=== PATIENT | male | born 1950 | race African-American/Black ===

== ENCOUNTER 2020-07-09 20:44 | Inpatient (IN) | payer MEDICARE, OTHER ==
[2020-07-09 22:10] LABS: #Eosinphils 0.1 thou/uL (0.0-0.7); #Lymphocytes 2.1 thou/uL (1.20-3.40); #Monocytes 0.9 thou/uL (0.11-0.59); #Neutrophils 7.4 thou/uL (1.40-6.50); %Basophils 0.3 % (0.0-1.0); %Eosinophils 0.7 % (0.0-10.0); %Lymphocytes 20.4 % (21.0-51.0); %Monocytes 8.5 % (0.0-10.0); %Neutrophils 70.1 % (42.0-75.0); Hemoglobin 13.8 g/dL (14.0-18.0); Mean Corpuscular HGB CONC 32.9 g/dL (32.0-36.0); Mean Platelet Volume 8.5 fL (7.4-10.4); Platelet Count 170 thou/uL (130-400); RBC Distribution Width 12.5 % (11.5-14.5); Red Blood Cell (RBC) Count 4.44 mill/uL (4.70-6.10); White Blood Cell (WBC) Count 10.5 thou/uL (4.8-10.8)
[2020-07-09 22:14] LABS: INR-International Normal Ratio 0.9; Prothrombin Time 12.5 sec (12.0-14.7)
[2020-07-09 22:35] LABS: ALT (SGPT) 9 U/L (8-55); AST (SGOT) 17 U/L (5-34); Albumin 3.8 g/dL (3.4-4.8); Alkaline Phosphatase 63 U/L (40-110); Anion Gap 14 mmol/L (10-20); BUN (Urea Nitrogen) 28 mg/dL (8.4-25.7); Bilirubin, Total Less than 0.2 mg/dL (0.2-1.2); Calc. Creatinine Clearance 0 mL/min (70-130); Carbon Dioxide 24 mmol/L (23-31); Chloride 101 mmol/L (98-107); Estimated GFR-MDRD 50; Globulin 3.7 g/dL (2.4-3.5); Glucose 185 mg/dL (80-115); Potassium 4.3 mmol/L (3.5-5.1); Protein, Total 7.5 g/dL (5.8-8.1); Sodium 135 mmol/L (136-145)
[2020-07-09] MEDS ORDERED: Aspirin Chewable 81 MG TAB ONE (23:52)
[2020-07-09] MEDS ORDERED: Meclizine HCl 25 MG TAB ONE (23:57)
--- NOTE | 2020-07-10 08:59 | PDOC.HHP ---
Hospitalist HPI - History of Present Illness History of Present Illness: PCP: Cleve Alfred 70-year-old male with a history of high blood pressure, high cholesterol, diabetes presents the ED for evaluation of new onset dizziness as of today. Patient states that dizziness is described as a spinning rotation and mostly present when he lies down flat in bed. Dizziness improves with sitting upright although it does take some time for the dizziness to resolve once it starts. Patient does state moderate headache on the right side of his head in association with his dizziness today. Denies any changes in vision. Denies any trouble swallowing. Denies any numbness or weakness. ED Course: VITAL SIGNS ThuJul 09, 2020 20:46 ABDI Pretty Victoria BP: 127/89, Pulse: 89, Resp: 22, Temp: 97.9 (Oral), Pain: 0, O2 sat: 100 on ( Room Air), Time: 07/09/2020 20:46. VITAL SIGNS ThuJul 09, 2020 21:25 ABDI Ramesh Kassidy BP: 145/87, Pulse: 96, Resp: 18, Temp: 97.8, Pain: 0, O2 sat: 99, Time: 2019 21:25. VITAL SIGNS ThuJul 09, 2020 22:16 ABDI Ramesh Kassidy BP: 140/87, Pulse: 95, Resp: 18, Temp: 97.8 (Oral), Pain: 0, O2 sat: 100 on ( Room Air), Time: 07/09/2020 22:16. VITAL SIGNS ThuJul 09, 2020 23:00 ABDI Ramesh Kassidy BP: 157/98, Pulse: 92, Resp: 18, Temp: 98.1 (Oral), Pain: 0, O2 sat: 99 on ( Room Air), Time: 07/09/2020 23:00. VITAL SIGNS ThuJul 10, 2020 00:00 ABDI Ramesh Kassidy BP: 166/100, Pulse: 90, Resp: 19, Temp: 98.1 (Oral), Pain: 0, O2 sat: 99 on ( Room Air), Time: 07/10/2020 00:00. ThuJul 10, 2020 08:56 Drug Name Dose Ordered Route Status Time aspirin oral 324 mg Oral Canceled 23:58 07/09/2020 meclizine 25 mg Oral Given 23:59 07/09/2020 *sodium chloride 0.9 % intravenous 1 L IV Fluid Infusion Given 22:25 07/09/2020 Hospitalist ROS - Review of Systems All other systems reviewed; all pertinent +/- noted in HPI/Subj - Medication Medications: metFORMIN ThuJul 09, 2020 22:28 ABDI Ramesh Kassidy tablet : Strength - 1,000 mg : ORAL Patient Dose: 1000 mg Oral 2 times a day. glimepiride ThuJul 09, 2020 22:29 ABDI Ramesh Kassidy tablet : Strength - 4 mg : ORAL Patient Dose: 4 mg Oral 2 times a day. pravastatin ThuJul 09, 2020 22:30 ABDI Ramesh Kassidy tablet : Strength - 40 mg : ORAL Patient Dose: 40 mg Oral once a day. losartan ThuJul 09, 2020 22:31 ABDI Ramesh Kassidy tablet : Strength - 25 mg : ORAL Patient Dose: unk.unknown dose. hydroCHLOROthiazide ThuJul 09, 2020 22:31 ABDI Ramesh Kassidy tablet : Strength - 12.5 mg : ORAL Patient Dose: unk.dose unknown. Aspir-81 ThuJul 09, 2020 22:32 ABDI Ramesh Kassidy TABLET, DELAYED RELEASE (ENTERIC COATED) : Strength - 81 mg : ORAL Patient Dose: once a day (in the morning). Allergies: SALMA inhibitors Hospitalist History - Past Medical History Source: patient, RN notes reviewed Other Medical History: MEDICAL HISTORY ThuJul 09, 2020 21:18 ABDI Poe Sarah Past medical history includes history of hypertension, Notes: Pancreatitis, DM, High cholesterol. MALE SURGICAL HISTORY ThuJul 09, 2020 21:18 ABDI Poe Sarah Patient has no surgical history. PSYCHIATRIC HISTORY ThuJul 09, 2020 21:18 ABDI Poe Sarah No previous psychiatric history. SOCIAL HISTORY ThuJul 09, 2020 21:18 ABDI Poe Sarah Patient currently uses tobacco, smokes cigarettes, Occasional or some day smoker , Patient denies alcohol use, Patient denies drug use,. FAMILY HISTORY Hospitalist Results - Labs Result Diagrams: 07/09/20 21:58 07/09/20 21:58 Lab results: WBC 10.5 thou/uL (4.8-10.8) 07/09/20 21:58 Hgb 13.8 g/dL (14.0-18.0) L 07/09/20 21:58 Hct 41.8 % (42.0-52.0) L 07/09/20 21:58 MCV 94.0 fL (78.0-98.0) 07/09/20 21:58 Plt Count 170 thou/uL (130-400) 07/09/20 21:58 Neutrophils % 70.1 % (42.0-75.0) 07/09/20 21:58 ESR Westergren 59 mm/hr (Less than 20) 07/09/20 21:58 Sodium 135 mmol/L (136-145) L 07/09/20 21:58 Potassium 4.3 mmol/L (3.5-5.1) 07/09/20 21:58 Chloride 101 mmol/L (98-107) 07/09/20 21:58 Carbon Dioxide 24 mmol/L (23-31) 07/09/20 21:58 BUN 28 mg/dL (8.4-25.7) H 07/09/20 21:58 Creatinine 1.65 mg/dL (0.7-1.3) H 07/09/20 21:58 Glucose 185 mg/dL (80-115) H 07/09/20 21:58 Calcium 9.0 mg/dL (7.8-10.44) 07/09/20 21:58 Total Bilirubin Less than 0.2 mg/dL (0.2-1.2) L 07/09/20 21:58 AST 17 U/L (5-34) 07/09/20 21:58 ALT 9 U/L (8-55) 07/09/20 21:58 Alkaline Phosphatase 63 U/L (40-110) 07/09/20 21:58 Troponin I 0.012 ng/mL (< 0.028) 07/09/20 21:58 Serum Total Protein 7.5 g/dL (5.8-8.1) 07/09/20 21:58 Albumin 3.8 g/dL (3.4-4.8) 07/09/20 21:58 - EKG Interpretation EK lead EKG shows normal sinus rhythm, T waves, Deep biphasic T waves in V1/2, [place] normal. - Radiology Interpretation CT scan - head Status: report reviewed by me Additional Comment: CT brain, CTA head and neck Head CT without contrast CT angiogram head CT angiogram neck: 07/09/2020 COMPARISON: None HISTORY: Headache and dizziness TECHNIQUE: Axial CT imaging at 5 mm intervals from vertex through skull base without contrast. Axial CT imaging at 1.25 mm intervals from vertex through lung apices with IV contrast using CT angiogram protocol with coronal and sagittal 3-D reformatted imaging. IMPRESSION: No acute intracranial arterial abnormality. No intracranial hemorrhage, midline shift, or mass effect. Focal stenosis at the origin of the right internal carotid artery with prominent poststenotic dilatation. The origin of the left internal carotid artery is ectatic and mildly irregular. Findings may be seen on the basis of a connective tissue disorder. Question a history of fibromuscular dysplasia.
[2020-07-10] MEDS ORDERED: Labetalol HCl 100 MG/20 ML VIAL SLOW IVP PRN (09:34)
[2020-07-10] MEDS ORDERED: hydrALAZINE 20 MG/ML VIAL SLOW IVP PRN (09:34)
[2020-07-10] MEDS ORDERED: Dextrose 5% in Water 1,000 ML IV PRN (09:37)
[2020-07-10] MEDS ORDERED: HumaLOG 300 UNITS/3 ML VIAL SC PRN (09:37)
[2020-07-10] MEDS ORDERED: Dextrose 50% Abboject 50 ML SYRINGE SLOW IVP PRN (09:37)
[2020-07-10] MEDS ORDERED: Calcium Carbonate 500 MG ChewTAB PO PRN (09:39)
[2020-07-10] MEDS ORDERED: Acetaminophen 650 MG Suppository PR PRN (09:39)
[2020-07-10] MEDS ORDERED: Acetaminophen 325 MG TAB PO PRN (09:39)
--- NOTE | 2020-07-10 10:35 | MRI ---
Exam: Brain MRI without contrast HISTORY: CVA. Stroke. COMPARISON: None FINDINGS: Calvarial marrow signal intensity: Appropriate T1 signal Gradient echo sequence: No hemorrhage Brain parenchyma: No mass, mass effect or midline shift. Brain volume, age-appropriate. Cortical cavanaugh-white matter differentiation: Preserved Restricted diffusion: Central arterial flow voids are maintained. Absent restricted diffusion White matter signal intensities:Scattered T2, FLAIR white matter hyperintensities due to chronic smal l vessel ischemic changes Sinuses: Mucous retention cyst in the right maxillary sinus IMPRESSION: 1. Absent restricted diffusion. No acute infarct 2. Age-appropriate atrophy. Scattered chronic small vessel ischemic changes of the white matter
[2020-07-10] MEDS ORDERED: Aspirin 81 mg Enteric Coated Tablet PO SCH (10:45)
--- NOTE | 2020-07-10 10:56 | HP ---
PRIMARY CARE PHYSICIAN: Cleve Alfred MD. CHIEF COMPLAINT: Dizziness. HISTORY OF PRESENT ILLNESS: The patient is a 70-year-old male with a past medical history significant for hypertension, diabetes, hyperlipidemia, and essential tremors to BUSilvia, who presents to the ER for the above complaint. The patient reports that he developed the acute onset of dizziness at approximately 1700 on the evening prior to admission to the hospital. He reports that when he awoke from lying down flat "the room was spinning." He reports that he has never had this before. He sat up in bed and his symptoms mildly improved. Reports symptoms resolved approximately 2 hours later. He reports an associated headache described as generalized "light", exacerbated by nothing and relieved by nothing. He denies first and worst headache. He denies any recent fever or illness. He denies any neck stiffness. He denies any changes to vision, difficulties with speech, or focal motor deficits to his extremities. No recent trauma or fall. He reports that he went about his day with no symptoms and then when he went to lay down at approximately 2000 hours, his symptoms returned. He reports that the room was "spinning." He still had mild headache. That was when he decided to come to the ER. He denies any recent upper respiratory congestion, tinnitus. He denies any chest pain, heart palpitations , or shortness of breath. He has had no changes in his home medications. He reports diarrhea x3 episodes yesterday, but denies any recent travel, antibiotics, hospitalizations, or ingestion of uncooked foods. He denies any blood in stool. He does report vomiting x1. No hematemesis. He denies any abdominal pain or urinary symptoms. For these reasons, he came into the ER. In the ER, the patient presented with stable vital signs, normal blood pressure, normal pulse, normal respirations, normal O2 saturation. He was afebrile. EKG was normal sinus rhythm. There was some question of a biphasic T-wave in V1 and V2. CT of the brain was negative. CTA of head and neck showed focal stenosis at the origin of the right internal carotid artery with prominent poststenotic dilatation. The origin of the left internal artery is ectatic and mildly irregular. Findings may be seen on the basis of a connective tissue disorder, question of history of fibromuscular dysplasia. The patient was given aspirin, meclizine, and 1 L of IV fluids and will be admitted to the floor. PAST MEDICAL HISTORY: 1. Hypertension. 2. Diabetes. 3. Hyperlipidemia. 4. Bilateral upper extremity tremor. 5. Pancreatitis. PAST SURGICAL HISTORY: None. SOCIAL HISTORY: The patient lives with his family. He smokes 1-2 cigarettes a day. He does not drink. He has no illicit drug use. 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 He is fully independent. FAMILY HISTORY: Negative for stroke and negative for sudden cardiac . ALLERGIES: SALMA INHIBITORS. HOME MEDICATIONS: 1. Losartan 25 mg p.o. daily. 2. Hydrochlorothiazide, unknown dose. 3. Metformin 1000 mg p.o. b.i.d. 4. Glimepiride 4 mg p.o. b.i.d. 5. Pravastatin 40 mg p.o. daily. 6. Propranolol, unknown dose. REVIEW OF SYSTEMS: All review of systems are negative unless otherwise stated in the HPI. PHYSICAL EXAMINATION: VITAL SIGNS: Temperature 98.1, blood pressure 166/100, pulse 90, respirations 19, 99% on room air, 0/10 pain. CONSTITUTIONAL: The patient is alert and oriented to person, place, and time. No acute distress, comfortable. HEAD: Atraumatic and normocephalic. EYES: PERRLA. Extraocular muscles are intact, nonicteric sclerae. NECK: Full range of motion. No cervical spinous tenderness. ENT: Bilateral EACs are clear. TMs are intact bilaterally. Oropharynx is clear. Uvula midline. Moist mucous membranes. RESPIRATORY/CHEST: Respirations are even and nonlabored. Clear to auscultation. No rhonchi, wheezes or rales. CARDIOVASCULAR: S1, S2 appreciated. No murmurs, rubs, or gallops. ABDOMEN: Soft, nontender, nondistended. Active bowel sounds. No guarding. No rigidity. No rebound. No abdominal bruit auscultated. BACK: Full range of motion. No central spinous tenderness. No CVA tenderness. UPPER EXTREMITIES: Bilateral lower extremities; full range of motion. Strength normal. Sensation intact. Palpable radial pulses. Lower extremities; full range of motion, normal strength, sensation intact. Palpable pedal pulses, no swelling. NEUROVASCULAR: Cranial nerves 2 through 12 are intact. Unidirectional, horizontal nystagmus to left when stressing the extraocular muscles. No vertigo was elicited with stressing the extraocular muscles, moves all extremities well. Modified HINTS exam negative. No focal motor deficits. There is a bilateral hand tremor when doing the finger- nose test. The patient able to walk standby assist. PSYCHIATRIC: Denies suicidal or homicidal ideation. A and O x4. LABS AND DIAGNOSTICS: Sodium 135, potassium 4.3, chloride 101, carbon dioxide 24, anion gap 14, BUN 28, creatinine 1.65, glucose 185, calcium 9, total bilirubin less than 0.2, AST 17, ALT 9, alkaline phosphatase 63, troponin 0.012. WBCs 10.5, hemoglobin 13.8, hematocrit 41.8, platelets 170. PT 12.5, INR 0.9. IMAGIN. CT brain negative for any acute process. 2. CTA head and neck shows focal stenosis at the origin of the right internal carotid artery with prominent poststenotic dilatation. The origin of left internal carotid artery is ectatic with mildly irregular findings may be seen in the connective tissue disorder. IMPRESSION AND PLAN: 1. Vertigo We will admit the patient to the stroke unit inpatient status. Expected length of stay greater than 2 midnights. The patient presented with stable vital signs. He does have cardiovascular risk factors. His symptoms were acute in onset and resolved with meclizine. It appears more likely benign paroxysmal positional vertigo. We will rule out posterior stroke. We will order an MRI and echocardiogram. We will check TSH, B12, folate, magnesium, and UA. We will check orthostatics. We will give IV fluids and consult PT and neurology. We will perform neuro checks q.4 hours. 2. Abnormal EKG Initial EKG showed possible Wellens Sign. Will repeat EKG. Consult cardiology. Trend troponins. 3. Headache. The patient reports a generalized light headache. Denies first and worst headache. Currently, symptoms have resolved. We will continue to monitor. 4. Bilateral upper extremity hand tremors Chronic. The patient reports taking propranolol unknown dose. We will restart the patient on lowest dose of propranolol daily. 5. Hypertension. The patient presented with mildly elevated blood pressure. We will restart patient's losartan home medication. He does not know the dose of his hydrochlorothiazide. We will hold that for now. Continue to monitor blood pressure. Permissive hypertension with p.r.n. labetalol and hydralazine. 7. Diabetes type 2. The patient reports taking home dose of metformin and glyburide. We will hold for now. We will perform Accu-Cheks before meals and at bedtime and we will start the patient on intermittent sliding scale. 8. Hyperlipidemia. We will place the patient on high dose statin. We will check fasting lipid profile. Sequential compression devices for deep venous thrombosis prophylaxis. No pharmaco deep venous thrombosis prophylaxis. No gastrointestinal prophylaxis. Full code. Discussed the case with Dr. Mccoy. Job ID: [id number] MTDD
[2020-07-10 11:03] LABS: Thyroid Stimulating Hormone 0.8494 uIU/mL (0.35-4.94)
[2020-07-10] MEDS ORDERED: Aspirin Chewable 81 MG TAB ONE (11:28)
[2020-07-10] MEDS ORDERED: Aspirin 81 mg Enteric Coated Tablet ONE (11:29)
[2020-07-10] MEDS: Sodium Chloride 0.9% 1,000 ML IV SCH (11:40)
[2020-07-10] MEDS: HumaLOG 300 UNITS/3 ML VIAL SC PRN ×2 (11:40→18:42)
[2020-07-10] MEDS ORDERED: HumaLOG 300 UNITS/3 ML VIAL ONE (11:46)
[2020-07-10 13:06] LABS: SARS-CoV-2 MS2 Positive; SARS-CoV-2 N Gene Negative; SARS-CoV-2 S Gene Negative; SARS-CoV-2 by NAA Not Detected (NotDetected); SARS-CoV-2 orf1ab Negative
[2020-07-10 14:11] VITALS: BMI 24.8
[2020-07-10] MEDS: Meclizine HCl 12.5 MG TAB PO SCH ×2 (15:41→20:53)
[2020-07-10 15:59] LABS: Bilirubin Negative (Negative); Blood, Urine Trace (Negative); Clarity Clear (Clear); Glucose, Urine (Dipstick) 200 mg/dL (Negative); Ketone, Urine Negative (Negative); Leukocyte Negative Leu/uL (Negative); Nitrite Negative (Negative); Protein, Urine (Dipstick) 100 mg/dL (Neg-Trace); RBC/HPF 0-3 HPF (0-3); Squamous Epithelial None Seen HPF (0-3); Urobilinogen Normal mg/dL (Less than 2); WBC/HPF 0-3 HPF (0-3); pH, Urine 6.5 (5.0-9.0)
[2020-07-10 16:00] LABS: Bacteria/HPF Rare-Few HPF (None Seen)
[2020-07-10] MEDS ORDERED: Amlodipine 5 MG TAB PO SCH (18:30)
[2020-07-10] MEDS: Famotidine 20 MG TAB PO SCH (20:52)
[2020-07-10] MEDS: Metoprolol Tartrate 25 MG TAB PO SCH (20:53)
[2020-07-10] MEDS: Atorvastatin Calcium 40 MG TAB PO SCH (20:53)
--- NOTE | 2020-07-10 22:26 | CON ---
DATE OF CONSULTATION: HISTORY OF PRESENT ILLNESS: The patient is a 70-year-old gentleman, who presents for evaluation of dizziness. The patient has no previous cardiac history. The patient was admitted with acute onset of dizziness. He states the room feels like it is spinning. The patient denies having any chest discomfort. He denies having any dyspnea on exertion, PND, or orthopnea. The patient has multiple cardiac risk factors including hypertension, diabetes mellitus, and tobacco abuse. PAST MEDICAL HISTORY: 1. Diabetes mellitus. 2. Hypertension. 3. Dyslipidemia. 4. Chronic renal insufficiency. PAST SURGICAL HISTORY: Cholecystectomy. MEDICATIONS ON ADMISSION: 1. Pravachol 1 tablet at bedtime. 2. Metformin 1 tab b.i.d. 3. Michelin 50 daily. 4. HCTZ 1 tab daily. 5. Losartan. SOCIAL HISTORY: The patient has a long history of tobacco use. FAMILY HISTORY: No strong family history of heart disease. ALLERGIES: HE IS ALLERGIC TO SALMA INHIBITORS. REVIEW OF SYSTEMS: Ten-point system otherwise unremarkable. No history of easy bruising or bleeding. PHYSICAL EXAMINATION: GENERAL: A well-developed gentleman, in no acute distress. VITAL SIGNS: Blood pressure 172/104. NECK: No jugular venous distention. LUNGS: Clear to auscultation. HEART: Regular rate and rhythm. Normal S1 and S2. No murmurs. ABDOMEN: Nondistended. EXTREMITIES: Showed no edema. VASCULAR: Radial pulses are 2+. Femoral pulses are 2+. LABORATORY DATA AND IMAGING: Sodium 135, potassium 4.3, chloride 101, bicarbonate 24, BUN 28, and creatinine 1.65. Troponin was 0.012. White blood cell count 10.5, hemoglobin 13.8, hematocrit 41.8, and his platelets are 170. His EKG revealed normal sinus rhythm with a marked ST-T wave abnormality suggestive of ischemia and voltage criteria for left ventricular hypertrophy. IMPRESSION: 1. Dizziness, probably secondary to vertigo. 2. Abnormal electrocardiogram, highly suggestive of ischemia. 3. Hypertension. 4. Diabetes mellitus. 5. Dyslipidemia. 6. Tobacco abuse. This gentleman presents with vertigo. He has an abnormal ECG suggestive of ischemia. With his multiple risk factors, I discussed the option of proceeding directly with a cardiac catheterization or noninvasive evaluation. The patient strongly prefers to undergo stress testing. The patient will be scheduled for a Lexiscan stress test to see if there is evidence of significant ischemia. The patient is being hydrated. At this time, we will add Norvasc to lower his blood pressure. We would recommend beta-j carlos therapy. The patient should be on a high-intensity statin. We will follow this patient with you through his hospitalization. Job ID: [id number]
[2020-07-11 01:24] LABS: Troponin I 0.017 ng/mL (< 0.028)
[2020-07-11] MEDS: Sodium Chloride 0.9% 1,000 ML IV SCH ×2 (02:27→13:18)
[2020-07-11] MEDS ORDERED: Famotidine 20 MG TAB ONE (08:50)
[2020-07-11] MEDS ORDERED: Meclizine HCl 12.5 MG TAB ONE (08:50)
[2020-07-11] MEDS ORDERED: Amlodipine 5 MG TAB ONE (08:50)
[2020-07-11] MEDS ORDERED: Aspirin 81 mg Enteric Coated Tablet ONE (08:50)
[2020-07-11] MEDS ORDERED: Calcium Carbonate 500 MG ChewTAB ONE (08:50)
[2020-07-11] MEDS: Aspirin 81 mg Enteric Coated Tablet PO SCH (08:51)
[2020-07-11] MEDS: Famotidine 20 MG TAB PO SCH (08:51)
[2020-07-11] MEDS: Meclizine HCl 12.5 MG TAB PO SCH ×2 (08:51→14:52)
[2020-07-11] MEDS ORDERED: Propranolol 10 MG TAB PO SCH (09:00)
[2020-07-11] MEDS ORDERED: Amlodipine 5 MG TAB PO SCH (09:00)
--- NOTE | 2020-07-11 13:33 | NM ---
EXAM: CARDIAC SPECT HISTORY: Wellen's on EKG, hypertension, diabetes, dyslipidemia, smoker TECHNIQUE: A myocardial perfusion scan was performed using the single isotope 1 day protocol with j luis hnetium 99m sestamibi. [10 mCi] was injected intravenously for the rest exam followed by 30 mCi for the stress study. Exercise stress was monitored and interpreted by Dr. Ramirez FINDINGS: A fixed defect is seen in the distal anteroseptal wall. No reversible defects are noted. Gated SPECT LVEF: 26% Wall motion exam: Global hypokinesis IMPRESSION: No evidence of reversible ischemia
[2020-07-11] MEDS: Metoprolol Tartrate 25 MG TAB PO SCH (13:34)
[2020-07-11 13:54] LABS: #Eosinphils 0.1 thou/uL (0.0-0.7); #Lymphocytes 2.2 thou/uL (1.20-3.40); #Monocytes 0.8 thou/uL (0.11-0.59); #Neutrophils 5.1 thou/uL (1.40-6.50); %Basophils 0.3 % (0.0-1.0); %Eosinophils 1.3 % (0.0-10.0); %Lymphocytes 26.9 % (21.0-51.0); %Monocytes 9.7 % (0.0-10.0); %Neutrophils 61.8 % (42.0-75.0); Hemoglobin 14.4 g/dL (14.0-18.0); Mean Corpuscular HGB CONC 32.5 g/dL (32.0-36.0); Mean Corpuscular Hemoglobin 30.7 pg (27.0-31.0); Mean Corpuscular Volume 94.7 fL (78.0-98.0); Platelet Count 169 thou/uL (130-400); RBC Distribution Width 12.8 % (11.5-14.5); Red Blood Cell (RBC) Count 4.67 mill/uL (4.70-6.10); White Blood Cell (WBC) Count 8.3 thou/uL (4.8-10.8)
[2020-07-11 14:14] LABS: Anion Gap 14 mmol/L (10-20); BUN (Urea Nitrogen) 20 mg/dL (8.4-25.7); Calc. Creatinine Clearance 49 mL/min (70-130); Calcium 9.1 mg/dL (7.8-10.44); Carbon Dioxide 21 mmol/L (23-31); Cardiac Risk 4.4 (Less than 4.5); Chloride 104 mmol/L (98-107); Cholesterol 162 mg/dl (< 200 Desired); Estimated GFR-MDRD 57; Glucose 330 mg/dL (80-115); HDL Cholesterol 37 mg/dL (>60 Neg Risk); LDL Cholesterol, Calculated 85 mg/dL; Potassium 4.9 mmol/L (3.5-5.1); Sodium 134 mmol/L (136-145); Triglycerides 201 mg/dL (Less than 150)
[2020-07-11 14:20] LABS: Troponin I 0.022 ng/mL (< 0.028)
[2020-07-11] MEDS: HumaLOG 300 UNITS/3 ML VIAL SC PRN ×2 (14:52→17:11)
--- NOTE | 2020-07-11 15:08 | CON ---
NEUROLOGY CONSULTATION DATE OF CONSULTATION: REASON FOR CONSULTATION: Rule out stroke. HISTORY OF PRESENT ILLNESS: Mr. Deepti Lang is a 70-year-old male with medical history significant for hypertension, diabetes, hyperlipidemia, and essential tremors to bilateral upper extremities, presented to the emergency room with extreme dizziness. According to the patient, he developed acute onset dizziness around 5 p.m. yesterday prior to admission to the hospital. He woke up lying on the bed and felt room was spinning in front of his eyes and the symptoms lasted for about 2 hours and then resolved. He also reported headache, but denied nausea, vomiting, neck stiffness, chest pain, abdominal pain, focal weakness, focal paresthesias, loss of vision or blurred vision associated with the episode. According to the patient, his symptoms resolved, he went to lay down. At approximately 8 p.m., his symptoms returned and he felt the room spinning in front of his eyes with nausea and he decided to come to the emergency room for further evaluation. In the emergency room, head CT was done which was negative for acute intracranial pathology. CT of the head and neck showed focal stenosis at the origin of the right internal carotid artery with prominent poststenotic dilatation and the finding was consistent with connective tissue disorder and fibromuscular dysplasia. He was given aspirin, meclizine, and 1 L of fluid, and was admitted to the floor for further evaluation. REVIEW OF SYSTEMS: All 14 systems were reviewed and were negative except the pertinent positives and negatives mentioned in the HPI. PAST MEDICAL HISTORY: Hypertension, diabetes, hyperlipidemia, tremors, and pancreatitis. PAST SURGICAL HISTORY: None. SOCIAL HISTORY: The patient lives with his family. Smokes 1 to 2 cigarettes a day. Denies smoking. Denies alcohol or illegal drug use. 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 FAMILY HISTORY: No family history of stroke or sudden cardiac . ALLERGIES: SALMA INHIBITOR. HOME MEDICATION: 1. Losartan 25 mg once daily. 2. Hydrochlorothiazide. 3. Metformin 1000 mg p.o. b.i.d. 4. Glimepiride 4 mg p.o. b.i.d. 5. Pravastatin 40 mg daily. 6. Propranolol. PHYSICAL EXAMINATION: VITAL SIGNS: Blood pressure 160/100, pulse 80, respiratory rate 18. CVS: Regular rate and rhythm. CHEST: Clear. ABDOMEN: Soft. NECK: Supple. NEUROLOGIC: Mental status: Patient is alert and oriented to person, place, and time. Recent and remote memory intact. Speech is clear. Motor: Muscle tone and bulk are normal. Strength 5/5 bilaterally. Cranial nerves: 2 through 12 intact. Sensory intact. Cerebellar, [id number] testing intact. Gait deferred due to patient's safety reason. LABORATORY DATA: I reviewed the labs and the imaging we described in the HPI. ASSESSMENT AND PLAN: Mr. Deepti Lang is consulted for vertigo. Differential diagnosis includes benign positional vertigo versus TIA. However, vertigo is more on the differential since it was resolved with meclizine. MRI was done to rule out posterior circulation stroke, which was negative for acute intracranial pathology. 2D echo pending. Cardiac stress test completed, results are pending. Start aspirin and statin for secondary stroke prevention. Strict control of blood pressure and blood glucose. Continue home medications. Neuro checks every 4 hours. Continue medical management per primary team. Check hemoglobin A1c, fasting lipid profile, and TSH. Telemetry. DVT prophylaxis. Continue medical management per primary team and Cardiology. We will continue to follow. Thank you for the consult. Job ID: [id number] MTDD
[2020-07-11] MEDS ORDERED: Communication Order-Pharmacy FS SCH (16:00)
[2020-07-11] MEDS: Carvedilol 6.25 MG TAB PO SCH (17:10)
--- NOTE | 2020-07-11 18:04 | PDOC.HOSPP ---
- Subjective Encounter Date: 07/11/20 Encounter Time: 09:00 Subjective: no overnight events. this morning, feeling better and no longer has spinning sensation. Has no complaints. - Objective Vital Signs & Weight: Vital Signs (12 hours) Temp Pulse Resp BP BP Pulse Ox 07/11/20 17:10 142/93 H 07/11/20 15:12 97.9 F 81 16 142/93 H 97 07/11/20 13:01 97.9 F 100 20 152/99 H 98 07/11/20 07:11 97.7 F 88 14 142/97 H 98 Weight Weight 163 lb 6.4 oz I&O: 07/10/20 07/11/20 07/12/20 06:59 06:59 06:59 Intake Total 480 290 Balance 480 290 Result Diagrams: 07/11/20 13:40 07/11/20 13:40 Additional Labs: Accuchecks 07/11/20 07/11/20 07/10/20 16:25 13:34 20:42 POC Glucose 264 H 316 H 141 H Hospitalist ROS - Review of Systems Constitutional: denies: chills, sweats Respiratory: denies: cough, shortness of breath Cardiovascular: denies: chest pain, palpitations, orthopnea Gastrointestinal: denies: nausea, vomiting, abdominal pain Genitourinary: denies: dysuria, hematuria - Medication Medications: Active Medications Generic Name Dose Route Start Last Admin Trade Name Freq PRN Reason Stop Dose Admin Aspirin 81 mg 07/11/20 09:00 07/11/20 08:51 Ecotrin PO 81 mg DAILY MARY Administration Atorvastatin Calcium 40 mg 07/10/20 21:00 07/10/20 20:53 Lipitor PO 40 mg HS MARY Administration Carvedilol 12.5 mg 07/11/20 17:00 07/11/20 17:10 Carvedilol 6.25 Mg Tab PO 12.5 mg BID-WM MARY Administration Famotidine 20 mg 07/10/20 21:00 07/11/20 08:51 Pepcid PO 20 mg BID MARY Administration Insulin Human Lispro 0 units 07/10/20 09:37 07/11/20 17:11 Humalog 300 Units/3 Ml Vial SC 07/12/20 00:01 6 unit .MODERATE SLIDING SC PRN Administration Moderate Correctional Scale Meclizine HCl 25 mg 07/10/20 15:00 07/11/20 14:52 Antivert PO 25 mg TID MARY Administration Sodium Chloride 10 ml 07/10/20 09:29 07/10/20 11:40 Flush - Normal Saline IVF 10 ml PRN PRN Administration Saline Flush - Exam General Appearance: NAD, awake alert Neck: no JVD Heart: RRR, no murmur, no gallops, no rubs Respiratory: CTAB, no wheezes, no rales, no ronchi Gastrointestinal: soft, non-tender, non-distended, normal bowel sounds Extremities: no edema Psychiatric: normal affect, normal behavior, A&O x 3 Hosp A/P - Plan #BPPV performed Scott, on meclizine; symptoms resolved -outpatient appointment with ENT for further workup and treatment #Marquise pattern -cardiology consulted; pending evlauation Full code ELOS: 1 night
[2020-07-11] MEDS ORDERED: Meclizine HCl 12.5 MG TAB PO PRN (18:07)
[2020-07-11] MEDS ORDERED: Sodium Bicarbonate 150 MEQ in Dextrose 5% in Water 1,000 ML IV SCH (18:30)
[2020-07-11] MEDS: Insulin Glargine 10 UNITS in Pre-Filled Syringe 1 EACH SC SCH (21:53)
[2020-07-11] MEDS: Atorvastatin Calcium 40 MG TAB PO SCH (21:53)
[2020-07-12 05:20] LABS: Anion Gap 12 mmol/L (10-20); BUN (Urea Nitrogen) 21 mg/dL (8.4-25.7); Calc. Creatinine Clearance 52 mL/min (70-130); Calcium 9.1 mg/dL (7.8-10.44); Carbon Dioxide 24 mmol/L (23-31); Chloride 105 mmol/L (98-107); Estimated GFR-MDRD 62; Glucose 295 mg/dL (80-115); Magnesium 1.7 mg/dL (1.6-2.6); Potassium 4.4 mmol/L (3.5-5.1); Sodium 137 mmol/L (136-145)
[2020-07-12] MEDS: Carvedilol 6.25 MG TAB PO SCH ×2 (06:31→17:54)
[2020-07-12] MEDS: Aspirin 81 mg Enteric Coated Tablet PO SCH (07:53)
[2020-07-12] MEDS ORDERED: Iopamidol 370 76% 100 ML VIAL ONE (09:25)
[2020-07-12] MEDS ORDERED: Lidocaine 1% (PF) 30 ML VIAL ONE (09:33)
[2020-07-12] MEDS ORDERED: Midazolam HCl 2 mg/2 ml Vial ONE (10:45)
[2020-07-12] MEDS ORDERED: Nitroglycerin 0.4 MG TAB (25 Tab Bottle) SL PRN (11:02)
[2020-07-12] MEDS ORDERED: Sodium Chloride 0.9% 200 ML IV PRN (11:02)
[2020-07-12] MEDS ORDERED: Acetaminophen/Codeine 30-300mg Tablet PO PRN ×2 (11:02)
[2020-07-12] MEDS: HumaLOG 300 UNITS/3 ML VIAL SC PRN ×2 (13:14→17:55)
[2020-07-12] MEDS ORDERED: HumaLOG 300 UNITS/3 ML VIAL SC SCH (18:30)
--- NOTE | 2020-07-12 18:32 | PDOC.HOSPP ---
- Subjective Encounter Date: 07/12/20 Encounter Time: 13:00 Subjective: no ovnernight evnets. Scott maneuever performed yesterday. this morning, feeling well, spinning sensation resolved, s/p LHC. Has no compalints. - Objective Vital Signs & Weight: Vital Signs (12 hours) Temp Pulse Resp BP BP BP BP 07/12/20 17:54 157/105 H 07/12/20 17:48 149/97 H 157/105 H 152/101 H 07/12/20 15:19 98.5 F 79 16 142/99 H 07/12/20 11:25 98.2 F 81 20 148/107 H 07/12/20 07:08 97.9 F 86 18 134/84 07/12/20 06:31 142/93 H Pulse Ox 07/12/20 17:54 07/12/20 17:48 07/12/20 15:19 98 07/12/20 11:25 97 07/12/20 07:08 96 07/12/20 06:31 Weight Weight 163 lb 6.4 oz I&O: 07/11/20 07/12/20 07/13/20 06:59 06:59 06:59 Intake Total 480 965 510 Output Total 600 500 Balance 480 365 10 Result Diagrams: 07/11/20 13:40 07/12/20 04:32 Additional Labs: Accuchecks 07/12/20 07/12/20 07/12/20 16:31 12:41 06:01 POC Glucose 208 H 259 H 264 H 07/11/20 07/11/20 21:03 05:36 POC Glucose 178 H 245 H Hospitalist ROS - Review of Systems Constitutional: denies: chills, sweats Eyes: denies: vision change Respiratory: denies: cough, shortness of breath, pleuritic pain Cardiovascular: denies: chest pain, palpitations, orthopnea, edema Gastrointestinal: denies: nausea, vomiting, abdominal pain, diarrhea Genitourinary: denies: dysuria, hematuria Neurological: denies: weakness - Medication Medications: Active Medications Generic Name Dose Route Start Last Admin Trade Name Freq PRN Reason Stop Dose Admin Aspirin 81 mg 07/11/20 09:00 07/12/20 07:53 Ecotrin PO Not Given DAILY [facility] Atorvastatin Calcium 40 mg 07/10/20 21:00 07/11/20 21:53 Lipitor PO 40 mg HS MARY Administration Carvedilol 12.5 mg 07/11/20 17:00 07/12/20 17:54 Carvedilol 6.25 Mg Tab PO 12.5 mg BID-WM MARY Administration Insulin Glargine 10 units/ 0.1 mls @ 0 mls/hr 07/11/20 21:00 07/11/20 21:53 Miscellaneous Medication SC 0.1 mls HS MARY Administration As Directed Insulin Human Lispro 0 units 07/12/20 09:07 07/12/20 17:55 Humalog 300 Units/3 Ml Vial SC 3 unit .MILD SLIDING SCALE PRN Administration Mild Correctional Scale Sodium Chloride 10 ml 07/10/20 09:29 07/10/20 11:40 Flush - Normal Saline IVF 10 ml PRN PRN Administration Saline Flush - Exam General Appearance: NAD, awake alert Neck: no JVD Heart: RRR, no murmur, no gallops, no rubs Respiratory: CTAB, no wheezes, no rales, no ronchi Gastrointestinal: soft, non-tender, non-distended, normal bowel sounds Extremities: no edema Psychiatric: normal affect, normal behavior, A&O x 3 Hosp A/P - Plan #BPPV performed Scott, took off meclizine; remains symptom free -outpatient appointment with ENT for follow up #new onset HFrEF EF 20-25% will be started on HF medications as per cardiology; will require SCD PPx; defer to cardiology #Marquise walsh -[facility] performed this morning -cardiology consulted; pending evlauation Full code ELOS: cardiology clearance
[2020-07-12] MEDS: Insulin Glargine 10 UNITS in Pre-Filled Syringe 1 EACH SC SCH (21:52)
[2020-07-12] MEDS: Atorvastatin Calcium 40 MG TAB PO SCH (21:52)
[2020-07-12] MEDS ORDERED: HumaLOG 300 UNITS/3 ML VIAL SC PRN (23:31)
[2020-07-12] MEDS ORDERED: Dextrose 50% Abboject 50 ML SYRINGE SLOW IVP PRN (23:31)
[2020-07-12] MEDS ORDERED: Dextrose 5% in Water 1,000 ML IV PRN (23:31)
[2020-07-13] MEDS ORDERED: Magnesium 2 GM/50 ML 2 GM in Premix Bag 1 BAG IVPB SCH (01:45)
[2020-07-13 05:35] LABS: Anion Gap 15 mmol/L (10-20); BUN (Urea Nitrogen) 20 mg/dL (8.4-25.7); Calc. Creatinine Clearance 53 mL/min (70-130); Calcium 9.1 mg/dL (7.8-10.44); Carbon Dioxide 20 mmol/L (23-31); Chloride 104 mmol/L (98-107); Estimated GFR-MDRD 62; Glucose 246 mg/dL (80-115); Magnesium 2.5 mg/dL (1.6-2.6); Potassium 4.4 mmol/L (3.5-5.1); Sodium 135 mmol/L (136-145)
[2020-07-13] MEDS: HumaLOG 300 UNITS/3 ML VIAL SC PRN ×3 (05:49→18:16)
[2020-07-13] MEDS: Carvedilol 6.25 MG TAB PO SCH ×2 (09:08→16:22)
[2020-07-13] MEDS: Aspirin 81 mg Enteric Coated Tablet PO SCH (09:11)
--- NOTE | 2020-07-13 14:53 | PDOC.HOSPP ---
- Subjective Encounter Date: 07/13/20 Encounter Time: 08:00 Subjective: no overnight events. this morning, feelnig well and has no complaints. Vertigo resolved yesterday after Scott. New onset HF started entresto monitoring tolerance, life vest tomorrow, then DC pending cardiology clearance - Objective Vital Signs & Weight: Vital Signs (12 hours) Temp Pulse Resp BP BP BP BP 07/13/20 11:00 97.4 F L 80 14 143/95 H 07/13/20 09:10 85 147/86 H 07/13/20 09:08 157/105 H 07/13/20 07:00 97.8 F 91 16 111/88 07/13/20 04:40 98.1 F 81 14 127/80 07/13/20 03:05 Pulse Ox 07/13/20 11:00 98 07/13/20 09:10 07/13/20 09:08 07/13/20 07:00 98 07/13/20 04:40 98 07/13/20 03:05 97 Weight Weight 161 lb I&O: 07/12/20 07/13/20 07/14/20 06:59 06:59 06:59 Intake Total 965 570 Output Total 600 950 Balance 365 -380 Result Diagrams: 07/11/20 13:40 07/13/20 04:19 Additional Labs: Accuchecks 07/13/20 07/13/20 07/12/20 10:47 05:54 19:53 POC Glucose 280 H 214 H 274 H 07/12/20 16:31 POC Glucose 208 H Hospitalist ROS - Review of Systems Respiratory: denies: cough, shortness of breath, SOB with excertion Cardiovascular: denies: chest pain, palpitations, orthopnea, edema Gastrointestinal: denies: nausea, vomiting, abdominal pain, diarrhea Neurological: denies: weakness - Medication Medications: Active Medications Generic Name Dose Route Start Last Admin Trade Name Freq PRN Reason Stop Dose Admin Aspirin 81 mg 07/11/20 09:00 07/13/20 09:11 Ecotrin PO 81 mg DAILY MARY Administration Atorvastatin Calcium 40 mg 07/10/20 21:00 07/12/20 21:52 Lipitor PO 40 mg HS MARY Administration Carvedilol 12.5 mg 07/11/20 17:00 07/13/20 09:08 Carvedilol 6.25 Mg Tab PO 12.5 mg BID-WM MARY Administration Insulin Human Lispro 0 units 07/12/20 09:07 07/13/20 11:57 Humalog 300 Units/3 Ml Vial SC 4 unit .MILD SLIDING SCALE PRN Administration Mild Correctional Scale Sacubitril/Valsartan 1 tab 07/13/20 09:00 07/13/20 09:11 Sacubitril 24mg/Valsartan 26mg Tab PO 1 tab BID MARY Administration Sodium Chloride 10 ml 07/10/20 09:29 07/13/20 09:15 Flush - Normal Saline IVF 10 ml PRN PRN Administration Saline Flush - Exam General Appearance: NAD, awake alert Neck: no JVD Heart: RRR, no murmur, no gallops, no rubs, normal peripheral pulses Respiratory: CTAB, no wheezes, no rales, no ronchi Extremities: no edema Extremities - other findings: right groin area no hematoma Psychiatric: normal affect, normal behavior, A&O x 3 Hosp A/P - Plan #BPPV performed Scott, took off meclizine; remains symptom free -outpatient appointment with ENT for follow up #new onset HFrEF Stress per cardiology, echo performed after wellens pattern on EKG EF 20-25% -started on coreg, entresto -monitor tolerance, electrolytes -Lifevest tomorrow Full code ELOS: 1 night, cardiology clearance
[2020-07-13] MEDS: metFORMIN 500 MG TAB PO SCH (16:22)
[2020-07-13] MEDS ORDERED: HumaLOG 300 UNITS/3 ML VIAL SC SCH (17:00)
[2020-07-13] MEDS ORDERED: Insulin Glargine 15 UNITS in Pre-Filled Syringe 1 EACH SC SCH (21:00)
[2020-07-13] MEDS: Atorvastatin Calcium 40 MG TAB PO SCH (21:54)
[2020-07-14 05:52] LABS: Hemoglobin A1c 8.2 % (4.0-6.0)
[2020-07-14] MEDS: HumaLOG 300 UNITS/3 ML VIAL SC PRN ×2 (06:05→12:10)
[2020-07-14] MEDS ORDERED: Glimepiride 4 MG TAB PO SCH (08:00)
[2020-07-14 08:28] VITALS: TEMP 97.9
[2020-07-14] MEDS ORDERED: Cholecalciferol 1,000 UNITS (25 MCG) TAB PO SCH (09:00)
[2020-07-14 09:06] LABS: Chloride 106 mmol/L (98-107); Potassium 4.4 mmol/L (3.5-5.1); Sodium 138 mmol/L (136-145)
[2020-07-14 09:07] LABS: Calcium 9.2 mg/dL (7.8-10.44); Glucose 203 mg/dL (80-115)
[2020-07-14 09:09] LABS: Anion Gap 14 mmol/L (10-20); Carbon Dioxide 22 mmol/L (23-31)
[2020-07-14 09:11] LABS: Calc. Creatinine Clearance 47 mL/min (70-130); Estimated GFR-MDRD 57
[2020-07-14 09:12] LABS: BUN (Urea Nitrogen) 23 mg/dL (8.4-25.7)
[2020-07-14 09:13] LABS: Magnesium 1.8 mg/dL (1.6-2.6)
[2020-07-14] MEDS: Aspirin 81 mg Enteric Coated Tablet PO SCH (09:32)
[2020-07-14] MEDS: metFORMIN 500 MG TAB PO SCH (09:32)
[2020-07-14] MEDS: Carvedilol 6.25 MG TAB PO SCH (09:33)
[2020-07-14 11:32] VITALS: BP 111/74
--- NOTE | 2020-07-14 11:32 | EKG ---
Test Reason : Blood Pressure : / mmHG Vent. Rate : 092 BPM Atrial Rate : 092 BPM P-R Int : 164 ms QRS Dur : 078 ms QT Int : 384 ms P-R-T Axes : 065 -06 072 degrees QTc Int : 474 ms Normal sinus rhythm Possible Left atrial enlargement Left ventricular hypertrophy T wave abnormality, consider anterior ischemia Prolonged QT Abnormal ECG Wellens T wave V2, V3 Confirmed by CELENA GOLDEN, BRUCE Carnes ([id number]), research editor JAKE GUTIERREZ ([id number]) on 07/14/2020 11:32:38 AM Referred By: Confirmed By:BRUCE DALLAS MD
--- NOTE | 2020-07-15 03:15 | DIS ---
DATE OF ADMISSION: 07/10/2020 DATE OF DISCHARGE: 07/14/2020 DISCHARGE DIAGNOSES: 1. New onset heart failure with reduced ejection fraction. 2. Benign positional vertigo. 3. Diabetes mellitus. 4. Hypertension. DISCHARGE MEDICATIONS: 1. Carvedilol 12.5 mg orally twice daily. 2. Entresto 24/26 mg orally twice daily. 3. Atorvastatin 40 mg orally nightly. 4. Glimepiride 8 mg orally daily. 5. Metformin 1000 mg orally twice daily. 6. Aspirin 81 mg orally daily. HISTORY OF PRESENT ILLNESS AND HOSPITAL COURSE: The patient is a 70-year-old male with past medical history of hypertension, hyperlipidemia, diabetes mellitus, and renal insufficiency, who presented to the hospital for evaluation of dizziness. He reported his symptoms are of room spinning sensation. This was thought to be due to vertigo and due to the intermittent nature of his symptoms and resolution of his symptoms with Scott maneuvers, benign positional paroxysmal vertigo was entertained as the etiology. During the patient's routine evaluation, his EKG did show some signs suggestive of ischemia and his echocardiogram revealed EF of 25% to 30%. Cardiology was consulted. Stress test was obtained, which did not show any signs of reversible ischemia. The patient was offered cardiac cath, which he agreed to, and the procedure was performed showing no evidence of coronary stenosis. Guideline-directed medications as noted above were started and the patient was also given LifeVest. He will follow up outpatient with Cardiology within the next few weeks. Job ID: [id number]
--- NOTE | 2020-07-16 15:36 | EKG ---
Test Reason : Blood Pressure : / mmHG Vent. Rate : 083 BPM Atrial Rate : 083 BPM P-R Int : 160 ms QRS Dur : 090 ms QT Int : 394 ms P-R-T Axes : 039 034 073 degrees QTc Int : 462 ms Normal sinus rhythm T wave abnormality, consider anterolateral ischemia Prolonged QT Abnormal ECG Confirmed by PIA DURAN M.D. ([id number] on 07/16/2020 3:36:13 PM Referred By: MORRIS CHAPARRO Confirmed By:PIA DURAN M.D.
--- NOTE | 2020-07-17 12:24 | PQF ---
CLINICAL DOCUMENTATION CLARIFICATION FORM: Dear : Hellen Roberson MD Date / Time: 07/17/2020 Please exercise your independent, professional judgment in responding to the clarification form. Clinical indicators are provided on the bottom of this form for your review Please check appropriate box(es): HEART FAILURE: HFrEF acquity as A. ACUITY [ ] Acute [ > ] Acute on Chronic [ ] Chronic [ ] Other diagnosis (Please specify if any) [ ] Unable to determine In addition, please specify: Present on Admission (POA): [ >] Yes [ ] No [ ] Unable to determine Physician Signature: Date/Time: For continuity of documentation, please document condition throughout progress notes and discharge summary. Thank You. To be completed by CDI/Coding staff for physician review: Present Clinical Indicators - Signs / Symptoms / Labs Results and Location in Medical Record [ x] Ejection Fraction =__20-25 % Hospital progress on 07/12 [ ] Dyspnea, Hypoxia [x ] New onset of HFrEF, will be started on HF medications as per cardiology Hospital progress on 07/12 [ x ] New onset HF started entresto monitoring tolerance Hospital progress on 07/13 [ x ] New onset of heart failure with reduced ejection fraction Discharge summary on 07/15 [ ] Orthopnea / SOB / dyspnea [ ] Pleural effusion / pulmonary edema [ ] CXR results [ ] Arrhythmia--tachycardia Present Risk Factors Results and Location in Medical Record [ ] History of CAD/ischemic heart disease [ X] CKD Hypertension Consult on 07/10 [ ] History of [facility] Present Treatments Results and Location in Medical Record [ ] Administration of SALMA / ARB / BB [ ] Cardiac monitoring / telemetry/ECHO [ x] Carvedilol 12.5 mg PO Medication from 07/11 to 07/14 [ ] Oxygen [ ] AICD [ ] Cardiology Consult CDS/Lathe Machine Operator Signature: AAS Phone #: Date/Time: 07/17/2020 This is a permanent part of the Medical Record [facility]
--- NOTE | 2020-07-17 16:28 | CT ---
Head CT without contrast CT angiogram head CT angiogram neck: 07/09/2020 COMPARISON: None HISTORY: Headache and dizziness TECHNIQUE: Axial CT imaging at 5 mm intervals from vertex through skull base without contrast. Axial CT imaging at 1.25 mm intervals from vertex through lung apices with IV contrast using CT angiogram protocol with coronal and sagittal 3-D reformatted imaging. FINDINGS: Imaged lung apices demonstrate centrilobular and subpleural emphysematous change. Noncontra st enhanced head CT demonstrates no intracranial hemorrhage, midline shift, mass effect, or ventricular enlargement. There is mucosal thickening involving the maxillary sinus on the right. The retroantral fat and parapharyngeal fat appears clear bilaterally. The parotid glands and the subm andibular glands are grossly unremarkable. Tonsillar pillars, epiglottis and preepiglottic fat, hyoid bone, thyroid cartilage, cricoid cartilage , thyroid gland, and level of the glottis appear grossly unremarkable. The left vertebral artery originates directly from the aortic arch. Bilateral vertebral arteries are patent and demonstrate no hemodynamically significant stenosis. The origin of the innominate artery, right common carotid artery, right subclavian artery, right vert ebral artery, left vertebral artery, left common carotid artery, and left subclavian artery demonstrate no hemodynamically significant stenosis. On the basis of NASCET criteria there is no hemo dynamically significant stenosis seen involving the common carotid artery on either side. The proximal aspect of the left internal carotid artery demonstrates ectasia and a mild lobulated per ipheral contour. There is no hemodynamically significant stenosis involving the left internal carotid artery. There is a focal area of stenosis at the origin of the right internal carotid artery with prominent p oststenotic dilatation. This stenosis could be on the basis of noncalcified soft plaque and/or age indeterminant focal thrombosed dissection. The focal area of stenosis at the origin of the right inte rnal carotid artery is estimated at approximately 30%. There is prominent poststenotic dilatation with the proximal aspect of the right ICA measuring approximately 9 mm in the poststenotic region. Bilateral patent posterior communicating arteries are present. The basilar artery and its branches ap pear patent. No saccular aneurysm, high-grade stenosis, or vascular occlusion is seen involving the anterior or the posterior circulation. Review of the osseous structures demonstrates no worrisome lytic or blastic bone lesions. IMPRESSION: No acute intracranial arterial abnormality. No intracranial hemorrhage, midline shift, or mass effect. Focal stenosis at the origin of the right internal carotid artery with prominent poststenotic dilatat ion. The origin of the left internal carotid artery is ectatic and mildly irregular. Findings may be seen on the basis of a connective tissue disorder. Question a history of fibromuscular dysplasia. Transcribed Date/Time: 07/17/2020 4:27 PM
== END 2020-07-14 14:25 | disposition home or self-care (01) | DRG 287 ==
LOC: ERS 20:44 → ERHOLD 07-10 00:05 → 2SE 07-10 13:44
PROVIDERS: ADMIT Internal Medicine; ATTEND Internal Medicine
PROC: B2111ZZ Fluoroscopy of Multiple Coronary Arteries using Low Osmolar Contrast (ICD-10-PCS; principal; 2020-07-12)
PROC: B2151ZZ Fluoroscopy of Left Heart using Low Osmolar Contrast (ICD-10-PCS; 2020-07-12)
PROC: 4A023N7 Measurement of Cardiac Sampling and Pressure, Left Heart, Percutaneous Approach (ICD-10-PCS; 2020-07-12)
DX: I11.0 Hypertensive heart disease with heart failure (principal); H81.10 Benign paroxysmal vertigo, unspecified ear; I50.23 Acute on chronic systolic (congestive) heart failure; I42.9 Cardiomyopathy, unspecified; E78.5 Hyperlipidemia, unspecified; E11.9 Type 2 diabetes mellitus without complications; F17.210 Nicotine dependence, cigarettes, uncomplicated; R51 Headache; I25.10 Atherosclerotic heart disease of native coronary artery without angina pectoris; Z90.49 Acquired absence of other specified parts of digestive tract; Z79.899 Other long term (current) drug therapy; Z79.84 Long term (current) use of oral hypoglycemic drugs; Z88.8 Allergy status to other drugs, medicaments and biological substances
CPT/HCPCS: 36415; 36416; 70496; 70498; 70551; 78452; 80048; 80053; 80061; 81001; 82607; 82746; 83036; 83735; 84443; 84484; 85025; 85610; 85652; 87635; 93005; 93010; 93017; 93306; 93458; 93798; 94760; 96360; 97139; 99152; 99153; A9500; J1644; J1815; J2001; J2250; J3475; Q9967; U0003

== ENCOUNTER 2021-12-23 09:09 | Outpatient (CLI) | payer MEDICARE ==
[2021-12-23 18:13] LABS: SARS-CoV-2 PCR by NAA Not Detected (NotDetected)
== END 2021-12-23 09:10 | disposition home or self-care (01) ==
LOC: LABBT 09:09
PROVIDERS: ATTEND Internal Medicine Nephrology
DX: N18.30 Chronic kidney disease, stage 3 unspecified (principal); R80.9 Proteinuria, unspecified; Z20.822 Contact with and (suspected) exposure to COVID-19
CPT/HCPCS: U0003; U0005

== ENCOUNTER 2021-12-27 08:38 | Day surgery (SDC) | payer MEDICARE ==
[2021-12-27 08:54] LABS: #Eosinphils 0.1 thou/uL (0.0-0.7); #Lymphocytes 1.4 thou/uL (1.20-3.40); #Monocytes 0.7 thou/uL (0.11-0.59); #Neutrophils 5.3 thou/uL (1.40-6.50); %Basophils 0.6 % (0.0-1.0); %Eosinophils 1.3 % (0.0-10.0); %Lymphocytes 18.6 % (21.0-51.0); %Monocytes 9.1 % (0.0-10.0); %Neutrophils 70.5 % (42.0-75.0); Hemoglobin 11.6 g/dL (14.0-18.0); Mean Corpuscular HGB CONC 32.1 g/dL (32.0-36.0); Mean Corpuscular Volume 96.5 fL (78.0-98.0); Mean Platelet Volume 7.7 fL (7.4-10.4); Platelet Count 167 thou/uL (130-400); RBC Distribution Width 13.1 % (11.5-14.5); Red Blood Cell (RBC) Count 3.74 mill/uL (4.70-6.10); White Blood Cell (WBC) Count 7.5 thou/uL (4.8-10.8)
[2021-12-27 09:13] LABS: Prothrombin Time 13.2 sec (12.0-14.7)
[2021-12-27 09:14] LABS: PTT 37.7 sec (22.9-36.1)
[2021-12-27] MEDS ORDERED: Fentanyl 100 MCG/2 ML VIAL ONE (09:53)
[2021-12-27] MEDS ORDERED: Midazolam HCl 2 mg/2 ml Vial ONE (09:53)
[2021-12-27] MEDS ORDERED: Lidocaine 1% PF 5 ML VIAL ONE (09:54)
[2021-12-27] MEDS ORDERED: Sodium Bicarbonate 2.5 MEQ/5 ML VIAL ONE (09:54)
[2021-12-27 10:05] VITALS: BP 115/63; TEMP 97.7; BMI 27.4
[2021-12-27] MEDS ORDERED: FLU VACC QS2021-22(65YR UP)/PF 240 MCG/0.7 ML SYRINGE IM ONE (14:00)
== END 2021-12-27 14:23 | disposition home or self-care (01) ==
LOC: CT 08:38
PROVIDERS: ATTEND Internal Medicine Nephrology
PROC: 0TB13ZX Excision of Left Kidney, Percutaneous Approach, Diagnostic (ICD-10-PCS; principal; 2021-12-27)
DX: I12.9 Hypertensive chronic kidney disease with stage 1 through stage 4 chronic kidney disease, or unspecified chronic kidney disease (principal); E11.22 Type 2 diabetes mellitus with diabetic chronic kidney disease; N18.30 Chronic kidney disease, stage 3 unspecified; D63.1 Anemia in chronic kidney disease; E78.5 Hyperlipidemia, unspecified; F17.200 Nicotine dependence, unspecified, uncomplicated; F10.20 Alcohol dependence, uncomplicated; K21.9 Gastro-esophageal reflux disease without esophagitis; E55.9 Vitamin D deficiency, unspecified; Z79.82 Long term (current) use of aspirin; Z79.84 Long term (current) use of oral hypoglycemic drugs; Z79.899 Other long term (current) drug therapy; Z88.8 Allergy status to other drugs, medicaments and biological substances; Z91.011 Allergy to milk products; Z95.810 Presence of automatic (implantable) cardiac defibrillator
CPT/HCPCS: 50200; 77012; 85025; 85610; 85730; 88305; 88313; 88329; 88346; 88348; 88350; J2250; J3010

== ENCOUNTER 2022-05-29 09:16 | Outpatient (CLI) | payer MEDICARE | END 2022-05-29 09:17 | disposition home or self-care (01) | LOC: LABBT 09:16 | PROVIDERS: ATTEND Orthopaedic Surgery Hand Surgery | DX: Z20.822 Contact with and (suspected) exposure to COVID-19 (principal) | CPT/HCPCS: 87811 ==

== ENCOUNTER 2022-06-02 13:02 | Day surgery (SDC) | payer MEDICARE ==
[2022-05-29 11:17] VITALS: BMI 24.3
[2022-06-02] MEDS ORDERED: CEFAZOLIN 2 GM VIAL ONE (13:57)
[2022-06-02] MEDS ORDERED: Sodium Chloride 0.9% 100 ML ONE (13:57)
[2022-06-02] MEDS ORDERED: Lidocaine 1% MPF 2 ML VIAL ONE (13:58)
[2022-06-02] MEDS ORDERED: Neomycin-Polymyxin 1 ML AMP ONE (14:29)
[2022-06-02] MEDS ORDERED: Bupivacaine PF 0.5% 30 ML VIAL ONE (14:29)
[2022-06-02] MEDS ORDERED: Bacitracin Zinc Ointment 30 gm TUBE ONE (14:29)
[2022-06-02] MEDS ORDERED: fentaNYL Citrate/PF 100 MCG/2 ML SYRINGE ONE (14:34)
[2022-06-02] MEDS ORDERED: Ondansetron PF 4 MG/2 ML Vial ONE (14:51)
[2022-06-02] MEDS ORDERED: ePHEDrine 50 MG/ML VIAL ONE (14:51)
[2022-06-02] MEDS ORDERED: PROPOFOL 200 MG/20 ML VIAL ONE (14:51)
[2022-06-02] MEDS ORDERED: Lidocaine 1% PF 5 ML VIAL ONE (14:51)
[2022-06-07 12:09] LABS: Fungus Stain Final report (.)
== END 2022-06-02 17:35 | disposition home or self-care (01) ==
LOC: SDC 13:02
PROVIDERS: ATTEND Orthopaedic Surgery Hand Surgery
PROC: 0HDQXZZ Extraction of Finger Nail, External Approach (ICD-10-PCS; principal; 2022-06-02)
DX: L60.3 Nail dystrophy (principal); B35.1 Tinea unguium; I12.9 Hypertensive chronic kidney disease with stage 1 through stage 4 chronic kidney disease, or unspecified chronic kidney disease; E11.22 Type 2 diabetes mellitus with diabetic chronic kidney disease; N18.30 Chronic kidney disease, stage 3 unspecified; E78.5 Hyperlipidemia, unspecified; K21.9 Gastro-esophageal reflux disease without esophagitis; Z87.891 Personal history of nicotine dependence; Z79.82 Long term (current) use of aspirin; Z79.84 Long term (current) use of oral hypoglycemic drugs; Z79.899 Other long term (current) drug therapy; Z88.8 Allergy status to other drugs, medicaments and biological substances; Z91.011 Allergy to milk products
CPT/HCPCS: 87102; 87206; 88305; 88311; 88312; J0690; J2405; J2704; J3490; S0020